=== PATIENT | female | born 1935 | race Caucasian/White ===

== ENCOUNTER 2016-05-02 15:28 | Inpatient (IN) | payer MEDICARE, MEDICAID ==
[~2016-05-02] VITALS: Ht 147.3 cm; Wt 63.0 kg
[2016-05-02 15:50] LABS: BASOPHILS # (AUTO) 0.1 /CMM (0.0-0.2); BASOPHILS % (AUTO) 0.6 % (0.0-2.0); DIFF TOTAL % 100 %; EOSINOPHILS # (AUTO) 0.1 /CMM (0.0-0.7); EOSINOPHILS % (AUTO) 0.6 % (0.0-6.0); HEMATOCRIT 29 % (33-45); HEMOGLOBIN 9.6 g/dL (11.5-14.8); LYMPHOCYTES # (AUTO) 2.6 /CMM (0.8-4.8); LYMPHOCYTES % (AUTO) 20.1 % (20.0-44.0); MEAN CORPUSCULAR HEMOGLOBIN 24 PG (26.0-33.0); MEAN CORPUSCULAR HGB CONC 33 g/dl (31.0-36.0); MEAN CORPUSCULAR VOLUME 73 fL (82-100); MONOCYTES # (AUTO) 0.4 /CMM (0.1-1.30); MONOCYTES % (AUTO) 3.3 % (2.0-12.0); NEUTROPHILS # (AUTO) 9.8 /CMM (1.8-8.9); NEUTROPHILS % (AUTO) 75.4 % (43.0-81.0); PLATELET COUNT (AUTO) 205 /CMM (150-450); RED BLOOD CELL COUNT(AUTO) 3.99 MIL/uL (4.0-5.2)
[2016-05-02 16:01] LABS: CREATININE 0.9 mg/dL (0.6-1.3); POTASSIUM 4.4 mmol/L (3.5-5.1)
[2016-05-02 16:04] LABS: INR 0.96 (0.87-1.13); PROTHROMBIN TIME 10.1 SECS (9.5-12.7)
[2016-05-02 16:12] LABS: ALBUMIN 3.2 g/dL (3.4-5.0); BILIRUBIN,TOTAL 0.2 mg/dL (0.2-1.0); TOTAL PROTEIN, SERUM 8.4 g/dL (6.4-8.2)
[2016-05-02 16:13] LABS: TROPONIN I 0.076 ng/mL (0.00-0.056)
[2016-05-02 16:14] LABS: INDIRECT BILIRUBIN 0.2 mg/dL (0.0-1.1)
[2016-05-02] MEDS ORDERED: ONDANSETRON HCL/PF 4 MG/2 ML VIAL IV ONE (16:30)
[2016-05-02] MEDS ORDERED: IV NS 0.9% 500 ML BAG IV ONE (16:30)
[2016-05-02] MEDS ORDERED: MORPHINE SULFATE INJ 4 MG/ML DISP.SYRIN ONE ×2 (16:30→17:59)
[2016-05-02] MEDS ORDERED: IV SET PRIMARY 1 EA INFUS.SET MC ONE (16:30)
[2016-05-02] MEDS ORDERED: ASPIRIN EC 81 MG TABLET.DR PO ONE ×2 (16:30)
[2016-05-02] MEDS ORDERED: IV NS 0.9% 500 ML IV ONE (16:30)
[2016-05-02] MEDS ORDERED: MORPHINE SULFATE INJ 2 MG/ML DISP.SYRIN IV ONE (16:30)
[2016-05-02] MEDS ORDERED: ONDANSETRON HCL/PF 4 MG/2 ML VIAL ONE ×2 (16:30→17:59)
[2016-05-02] MEDS ORDERED: NITROGLYCERIN 0.4 MG/TAB BOTTLE ONE (16:39)
[2016-05-02] MEDS ORDERED: NITROGLYCERIN 0.4 MG/TAB BOTTLE SL ONE (17:00)
[2016-05-02] MEDS ORDERED: ASPI-991 PO (17:12)
[2016-05-02] MEDS ORDERED: ERGO500047 PO (17:12)
[2016-05-02] MEDS ORDERED: CYAN1TAB3 PO (17:12)
[2016-05-02] MEDS ORDERED: TRAM50TA2 PO (17:12)
[2016-05-02] MEDS ORDERED: ROSU5TAB9 PO (17:12)
[2016-05-02] MEDS ORDERED: FERR-58 PO (17:12)
[2016-05-02] MEDS ORDERED: CALC-7 PO (17:12)
[2016-05-02] MEDS ORDERED: BLOO-697 IN (17:12)
[2016-05-02] MEDS ORDERED: GLYB1TAB9 PO (17:12)
[2016-05-02] MEDS ORDERED: METO25TA3 PO (17:12)
[2016-05-02] MEDS ORDERED: LINA145C PO (17:12)
[2016-05-02] MEDS ORDERED: AMYL1CAP56 PO (17:12)
[2016-05-02] MEDS ORDERED: [UNRECOGNIZED DRUG - CODE] PO (17:12)
[2016-05-02] MEDS ORDERED: ESOM40CA52 PO (17:12)
[2016-05-02] MEDS ORDERED: VALS1TAB48 PO (17:12)
[2016-05-02] MEDS ORDERED: LIDO30AD10 TP (17:19)
[2016-05-02] MEDS ORDERED: MORPHINE SULFATE INJ 2 MG/ML DISP.SYRIN ONE (17:59)
[2016-05-02] MEDS ORDERED: ONDANSETRON HCL/PF 4 MG/2 ML VIAL IV PRN (18:30)
[2016-05-02] MEDS ORDERED: MORPHINE SULFATE INJ 4 MG/ML DISP.SYRIN IV PRN (18:30)
[2016-05-02 18:40] VITALS: BP 141/76
[2016-05-02] MEDS ORDERED: ACETAMINOPHEN 325 MG TABLET PO PRN (19:00)
[2016-05-02] MEDS ORDERED: ONDANSETRON HCL/PF 4 MG/2 ML VIAL IVP PRN (19:00)
[2016-05-02] MEDS ORDERED: *INSULIN REGULAR(HUMULIN R)HUM 100 UNIT/ML VIAL SQ PRN (19:30)
[2016-05-02] MEDS ORDERED: INSULIN REGULAR, HUMAN 100 UNIT/ML 3 ML VIAL SQ PRN (19:30)
[2016-05-02] MEDS ORDERED: DEXTROSE 50%-WATER 50 ML DISP.SYRIN IV PRN (19:30)
[2016-05-02 20:00] VITALS: BP 152/82
[2016-05-02] MEDS ORDERED: ENOXAPARIN SODIUM 40 MG/0.4 ML DISP.SYRIN SQ SCH (20:00)
[2016-05-02] MEDS ORDERED: TEMAZEPAM 15 MG CAPSULE PO PRN (20:00)
[2016-05-02 20:24] LABS: IRON, SERUM 19 ug/dl (50-175); PERCENT SATURATION 4 % (14-33); TOTAL IRON BINDING CAPACITY 472 ug/dl (250-450)
[2016-05-02] MEDS ORDERED: LIDOCAINE 5% (PATCH) 1 EA PATCH TP SCH (21:00)
[2016-05-02] MEDS: VALSARTAN 80 MG TABLET PO SCH (21:08)
[2016-05-02 21:29] LABS: EOSINOPHILS % (MANUAL) 2 % (0-4); LYMPHOCYTES % (MANUAL) 19 % (16-48)
[2016-05-02 21:38] LABS: HYPOCHROMASIA SLT; PLATELET ESTIMATE ADEQUATE
[2016-05-02] MEDS: BLOOD SUGAR DIAGNOSTIC 1 EACH STRIP VI SCH (21:56)
[2016-05-02] MEDS ORDERED: TRIAZOLAM 0.125 MG TABLET PO SCH (22:00)
[2016-05-02] MEDS ORDERED: ATORVASTATIN 10 MG TABLET PO SCH (22:00)
[2016-05-02] MEDS ORDERED: METOPROLOL SUCCINATE 25 MG TAB.SR.24H PO SCH (22:00)
[2016-05-03] VITALS: BP 103/50
[2016-05-03 04:00] VITALS: BP 113/76
[2016-05-03] MEDS: PANTOPRAZOLE 40 MG TABLET.DR PO SCH ×2 (04:43→07:50)
[2016-05-03 06:40] LABS: BASOPHILS % (AUTO) 0.2 % (0.0-2.0); DIFF TOTAL % 100 %; EOSINOPHILS # (AUTO) 0.1 /CMM (0.0-0.7); EOSINOPHILS % (AUTO) 0.6 % (0.0-6.0); HEMATOCRIT 27 % (33-45); HEMOGLOBIN 8.3 g/dL (11.5-14.8); LYMPHOCYTES # (AUTO) 3.5 /CMM (0.8-4.8); LYMPHOCYTES % (AUTO) 27.1 % (20.0-44.0); MEAN CORPUSCULAR HEMOGLOBIN 23 PG (26.0-33.0); MEAN CORPUSCULAR HGB CONC 31 g/dl (31.0-36.0); MEAN CORPUSCULAR VOLUME 74 fL (82-100); MONOCYTES % (AUTO) 7.9 % (2.0-12.0); NEUTROPHILS # (AUTO) 8.3 /CMM (1.8-8.9); NEUTROPHILS % (AUTO) 64.2 % (43.0-81.0); PLATELET COUNT (AUTO) 208 /CMM (150-450); WHITE BLOOD COUNT (AUTO) 12.9 K/uL (4.3-11.0)
[2016-05-03 07:10] LABS: ALBUMIN 2.8 g/dL (3.4-5.0); BILIRUBIN,TOTAL 0.2 mg/dL (0.2-1.0); CALCIUM, SERUM 8.9 mg/dL (8.5-10.1); CREATININE 0.8 mg/dL (0.6-1.3); PHOSPHORUS 4.2 mg/dL (2.5-4.9); POTASSIUM 4.2 mmol/L (3.5-5.1); THYROID STIMULATING HORMONE 4.227 uIU/mL (0.358-3.74); TOTAL PROTEIN, SERUM 7.5 g/dL (6.4-8.2)
[2016-05-03] MEDS: VALSARTAN 80 MG TABLET PO SCH (07:50)
[2016-05-03] MEDS: BLOOD SUGAR DIAGNOSTIC 1 EACH STRIP VI SCH ×3 (07:51→17:45)
[2016-05-03] MEDS: CALCIUM CARB 250MG /VITAMIN D 1 UDTAB PO SCH ×2 (07:51→18:12)
[2016-05-03 08:00] VITALS: BP 125/60
[2016-05-03 08:20] LABS: ANISOCYTOSIS 2+; BAND % (MANUAL) 1 % (0.0-5.0); EOSINOPHILS % (MANUAL) 3 % (0-4); HYPOCHROMASIA 1+; LYMPHOCYTES % (MANUAL) 25 % (16-48); MICROCYTOSIS 2+; PLATELET ESTIMATE ADEQUATE
[2016-05-03] MEDS ORDERED: MORPHINE SULFATE INJ 2 MG/ML DISP.SYRIN IV STA (08:52)
[2016-05-03] MEDS ORDERED: HEPARIN INFUSION/D5W 500 ML IV PRN (09:00)
[2016-05-03] MEDS ORDERED: TRAMADOL HCL 50 MG TABLET PO SCH (09:00)
[2016-05-03] MEDS ORDERED: BLOOD SUGAR DIAGNOSTIC 1 EACH STRIP IN SCH (09:00)
[2016-05-03] MEDS ORDERED: ASPIRIN EC 81 MG TABLET.DR PO SCH (09:00)
[2016-05-03] MEDS ORDERED: FERROUS SULFATE (325 MG) 325 MG/TAB TABLET PO SCH (09:00)
[2016-05-03] MEDS ORDERED: HEPARIN SODIUM, PORCINE 5000 UNITS/1 ML VIAL IV ONE (09:30)
[2016-05-03] MEDS ORDERED: IV SET PRIMARY PUMP SET 1 EA INFUS.SET MC ONE (09:42)
[2016-05-03 12:00] VITALS: BP 123/69
[2016-05-03] MEDS ORDERED: ENOXAPARIN SODIUM 60 MG/0.6 ML DISP.SYRIN SQ SCH (12:30)
[2016-05-03] MEDS: METOPROLOL SUCCINATE 50 MG TAB.SR.24H PO SCH ×2 (13:36→18:12)
[2016-05-03] MEDS ORDERED: SUCRALFATE 1 G/10 ML UDC PO ONE (14:30)
[2016-05-03 16:00] VITALS: BP 123/62
[2016-05-03] MEDS: NITROGLYCERIN 0.4 MG/TAB BOTTLE SL PRN ×3 (17:44→17:59)
[2016-05-03] MEDS ORDERED: MORPHINE SULFATE INJ 2 MG/ML DISP.SYRIN IV ONE (18:00)
[2016-05-03 18:12] VITALS: BP 119/70
[2016-05-04] MEDS ORDERED: ERGOCALCIFEROL (VITAMIN D 2) 50,000 UNIT CAPSULE PO SCH (19:00)
== END 2016-05-03 20:25 | disposition short-term general hospital (02) | DRG 280 ==
LOC: ER 15:29 → TELE1 17:47 → TELE-TD 05-03 09:24 → TELE1 05-03 12:10 → TELE-TD 05-03 17:51
PROVIDERS: ADMIT Nurse Practitioner Acute Care; ATTEND Nurse Practitioner Acute Care
DX: I21.4 Non-ST elevation (NSTEMI) myocardial infarction (principal); R65.11 Systemic inflammatory response syndrome (SIRS) of non-infectious origin with acute organ dysfunction; I25.10 Atherosclerotic heart disease of native coronary artery without angina pectoris; D50.9 Iron deficiency anemia, unspecified; Z95.1 Presence of aortocoronary bypass graft; I10 Essential (primary) hypertension; E11.9 Type 2 diabetes mellitus without complications; E66.01 Morbid (severe) obesity due to excess calories; K44.9 Diaphragmatic hernia without obstruction or gangrene; G83.10 Monoplegia of lower limb affecting unspecified side; Z99.3 Dependence on wheelchair; G14 Postpolio syndrome; I35.0 Nonrheumatic aortic (valve) stenosis; Z79.4 Long term (current) use of insulin
CPT/HCPCS: 36415; 71010-TC; 80048-TC; 80053-TC; 80061-TC; 80076-TC; 82306; 82728-TC; 82962-TC; 83540-TC; 83690-TC; 83735-TC; 83880; 84100-TC; 84439-TC; 84443-TC; 84484-TC; 85025-TC; 85730-TC; 93307-TC; A4606; J1644; J1650; J1815; J2270; J2405; J7040; Z7610

== ENCOUNTER 2017-04-03 00:48 | Inpatient (IN) | payer MEDICARE, MEDICAID ==
[2017-04-03] VITALS (41 sets, daily range): BP systolic 81–146; BP diastolic 24–70
[~2017-04-03] VITALS: Ht 144.8 cm; Wt 57.2 kg
[~2017-04-03 00:48] MED LIST: AMYL1CAP56 PO; ASPI-1152 PO; BLOO-697 IN; CALC-7 PO; CYAN1TAB3 PO; ERGO500040 PO; ESOM40CA52 PO; FERR-58 PO; GLYB1TAB PO; LIDO30AD10 TP; LINA145C PO; METO25TA3 PO; ROSU5TAB9 PO; TRAM50TA2 PO; VALS1TAB4 PO; [UNRECOGNIZED DRUG - CODE] PO
--- NOTE | 2017-04-03 00:51 | NUR ---
TO BED 2 BIB PARAMEDICS C/O SOB WITH WHEEZING PER EMS REPORT. RECEIVE PT NONVERBAL, AAOX1. PT ON HHN TX STARTED BY EMS QUALITY ASSURANCE MONITOR. PLACE PT ON CARDIAC MONITORING, CONTINUOUS POX. SKIN WARM NONDIAPORETIC. ER MD AT BEDSIDE TO EVAL PT WIHT ORDERS RECIEVED. WILL CARRY OUT ORDERS. STARTED SL 18G TO LAC, BLOOD DRAWN AND SENT TO LAB.
[2017-04-03] MEDS ORDERED: Magnesium 1GM/D5W 100ML PREMIX 200 ML IV ONE ×2 (01:00→01:02)
[2017-04-03] MEDS ORDERED: methylPREDNISolone SOD SUCC 125 MG/2ML VIAL ONE (01:00)
--- NOTE | 2017-04-03 01:05 | NUR ---
RT PLACE PT ON BIPAP PER ER MD ORDER. BIPAP SETTING 15/5, RATE-16, FIO2-50%. WILL CONTINUE TO MONITOR PT CLOSELY.
--- NOTE | 2017-04-03 01:14 | NUR ---
PT REC'D ON NEBULIZER MASK 6L. RESP DISTRESS NOTED. PT PLACED ON BIPAP PER DR FONSECA. AMBU BAG BEDSIDE. ALARMS ARE SET AND AUDIBLE. BIPAP PLUGGED INTO RED OUTLET. WILL CONTINUE TO MONITOR Addendum: 04/03/17 at 0115 by DONNIE RAY RT Amended: Links added.
[2017-04-03] MEDS ORDERED: ALBUTEROL FS 2.5 MG/3 ML VIAL.NEB ONE (01:18)
[2017-04-03] MEDS ORDERED: TERBUTALINE SULFATE 1 MG/ML VIAL SQ ONE (01:30)
[2017-04-03] MEDS ORDERED: ALBUTEROL FS 2.5 MG/3 ML VIAL.NEB CONTNEB ONE (01:30)
[2017-04-03] MEDS ORDERED: methylPREDNISolone SOD SUCC 125 MG/2ML VIAL IV ONE (01:30)
[2017-04-03] MEDS ORDERED: TERBUTALINE SULFATE 1 MG/ML VIAL ONE (01:38)
[2017-04-03 01:46] LABS: CALCIUM, SERUM 8.7 mg/dL (8.5-10.1); CARBON DIOXIDE 22 mmol/L (21-32); CHLORIDE 111 mmol/L (98-107); CREATININE 0.9 mg/dL (0.6-1.3); GLUCOSE 158 mg/dL (74-106); POTASSIUM 3.9 mmol/L (3.5-5.1); SODIUM SERUM 143 mmol/L (136-145); UREA NITROGEN, BLOOD 22 mg/dL (7-18)
[2017-04-03 01:50] LABS: EOSINOPHILS # (AUTO) 0.2 /CMM (0.0-0.7); EOSINOPHILS % (AUTO) 0.7 % (0.0-6.0); HEMATOCRIT 23 % (33-45); HEMOGLOBIN 7.2 g/dL (11.5-14.8); LYMPHOCYTES % (AUTO) 37.2 % (20.0-44.0); MEAN CORPUSCULAR HEMOGLOBIN 22 PG (26.0-33.0); MEAN CORPUSCULAR HGB CONC 31 g/dl (31.0-36.0); MEAN CORPUSCULAR VOLUME 72 fL (82-100); MONOCYTES # (AUTO) 1.3 /CMM (0.1-1.30); MONOCYTES % (AUTO) 6.2 % (2.0-12.0); NEUTROPHILS % (AUTO) 55.9 % (43.0-81.0); PLATELET COUNT (AUTO) 323 /CMM (150-450); RDW COEFFICIENT OF VARIATION 17.5 (11.5-15.0); RED BLOOD CELL COUNT(AUTO) 3.22 MIL/uL (4.0-5.2); TROPONIN I 0.037 ng/mL (0.00-0.056); WHITE BLOOD COUNT (AUTO) 21.4 K/uL (4.3-11.0)
[2017-04-03 01:55] LABS: ALANINE AMINOTRANSFERASE 27 U/L (12-78); ALKALINE PHOSPHATASE 108 U/L (46-116); ASPARTATE AMINOTRANSFERASE 23 U/L (15-37); B-TYPE NATRIURETIC PEPTIDE 4968 PG/ML (0-125); BILIRUBIN,TOTAL 0.2 mg/dL (0.2-1.0)
--- NOTE | 2017-04-03 01:57 | NUR ---
ER AT BEDSIDE TALKING TO PT SON.
[2017-04-03] MEDS ORDERED: TERBUTALINE SULFATE 1 MG/ML VIAL IV ONE (02:00)
--- NOTE | 2017-04-03 02:05 | NUR ---
ER AT BEDSIDE TALKING TO PT SON.
[2017-04-03] MEDS ORDERED: LEVOFLOXACIN 500 MG /D5W 100ML 100 ML IV ONE (02:13)
[2017-04-03] MEDS ORDERED: FUROSEMIDE 20 MG/2 ML VIAL ONE (02:13)
[2017-04-03] MEDS ORDERED: NITROGLYCERIN PACKET 1 GM PACKET ONE (02:13)
[2017-04-03 02:16] LABS: EOSINOPHILS % (MANUAL) 1 % (0-4); LYMPHOCYTES % (MANUAL) 33 % (16-48); MONOCYTES % (MANUAL) 5 % (0-11.0); NEUTROPHILS % (MANUAL) 61 (42-76)
--- NOTE | 2017-04-03 02:19 | NUR ---
PT TOLREATING CURRENT BIPAP SETTING AT THIS TIME. WILL CONTINUE TO MONITOR PT CLOSELY.
[2017-04-03] MEDS ORDERED: LEVOFLOXACIN 500 MG /D5W 100ML 500 MG/100 ML PIGGYBACK IV ONE (02:30)
[2017-04-03] MEDS ORDERED: FUROSEMIDE 40 MG/4 ML VIAL IV ONE (02:30)
[2017-04-03] MEDS ORDERED: NITROGLYCERIN PACKET 1 GM PACKET TOP ONE (02:30)
[2017-04-03 02:41] LABS: ABG BASE EXCESS -8.5 mmol/L; ABG OXYGEN SATURATION 98.5 % (92.0-98.5); ABG PH 7.305 (7.350-7.450); ABG PO2 140.7 mmHg (75.0-100.0); AaDO2 176.4 mmHg; COHb 1.4 % (0.5-1.5); MetHb 0.7 % (0.0-1.5); O2Hb 96.4 % (94.0-97.0); SITE, ABG Right Radial; VENT MODE, BG bipap 15/5 50% BR 16
--- NOTE | 2017-04-03 03:03 | NUR ---
ER SPOKE TO LUZ HER[facility]NDEZ [facility] PT ADMISSION.
[2017-04-03] MEDS ORDERED: DEXTROSE 50%-WATER 50 ML DISP.SYRIN IV PRN ×2 (03:30→14:00)
--- NOTE | 2017-04-03 04:00 | NUR ---
REPORT CALLED TO CREWMAN MAIN BATTLE TANK LAISHA. WILL TRANSPORT PT VIA ACLS PROTOCOL.
[2017-04-03 04:45] LABS: APPEARANCE,URINE CLEAR (CLEAR); BILIRUBIN,URINE NEGATIVE (NEGATIVE); BLOOD, URINE NEGATIVE Ery/uL (NEGATIVE); COLOR,URINE YELLOW (YELLOW); KETONES,URINE NEGATIVE (NEGATIVE); LEUKOCYTE ESTERASE ,URINE 1+ (NEGATIVE); NITRITE, URINE NEGATIVE (NEGATIVE); PH,URINE 5.5 (5.0-8.0); PROTEIN,URINE 3+ mg/dl (NEGATIVE); UGLUCOSE NEGATIVE (NEGATIVE); UROBILINOGEN,URINE 0.2 EU/dL (0.2)
[2017-04-03 04:57] LABS: RBC,URINE NONE SEEN /HPF (0-2)
[2017-04-03 04:58] LABS: BACTERIA,URINE None seen /HPF (None Seen); SQUAMOUS EPITHELIAL CELL,UR Rare /HPF (None Seen); URINE AMORPHOUS URATE Few /HPF (None Seen)
[2017-04-03 05:14] LABS: IRON, SERUM 19 ug/dl (50-175); TOTAL IRON BINDING CAPACITY 471 ug/dl (250-450)
[2017-04-03 06:22] LABS: BASOPHILS % (AUTO) 0.3 % (0.0-2.0); EOSINOPHILS % (AUTO) 0.1 % (0.0-6.0); LYMPHOCYTES # (AUTO) 0.8 /CMM (0.8-4.8); LYMPHOCYTES % (AUTO) 6.1 % (20.0-44.0); MEAN CORPUSCULAR HEMOGLOBIN 23 PG (26.0-33.0); MEAN CORPUSCULAR HGB CONC 33 g/dl (31.0-36.0); MEAN CORPUSCULAR VOLUME 69 fL (82-100); MONOCYTES # (AUTO) 0.1 /CMM (0.1-1.30); MONOCYTES % (AUTO) 0.9 % (2.0-12.0); NEUTROPHILS # (AUTO) 12.8 /CMM (1.8-8.9); NEUTROPHILS % (AUTO) 92.6 % (43.0-81.0); PLATELET COUNT (AUTO) 229 /CMM (150-450); RED BLOOD CELL COUNT(AUTO) 2.85 MIL/uL (4.0-5.2); WHITE BLOOD COUNT (AUTO) 13.7 K/uL (4.3-11.0)
[2017-04-03 06:24] LABS: HEMATOCRIT 20 % (33-45); HEMOGLOBIN 6.5 g/dL (11.5-14.8)
[2017-04-03 06:25] LABS: CALCIUM, SERUM 8.9 mg/dL (8.5-10.1); CARBON DIOXIDE 17 mmol/L (21-32); CHLORIDE 106 mmol/L (98-107); GLUCOSE 262 mg/dL (74-106); MAGNESIUM 2.5 mg/dL (1.8-2.4); PHOSPHORUS 3.8 mg/dL (2.5-4.9); POTASSIUM 4.1 mmol/L (3.5-5.1); SODIUM SERUM 137 mmol/L (136-145); UREA NITROGEN, BLOOD 24 mg/dL (7-18)
--- NOTE | 2017-04-03 06:31 | NUR ---
UMBRELLA CUTTER DF CRITICAL VALUE HGB/HCT OF 6.5/20 NO S/S OF BLEEDING NOTED. FORWARDED RESULTS TO ABDIAS HERNANDEZ, AWAITING ORDERS. VSS.NAD NOTED. A/OX3 OCCITAN SPEAKING.
[2017-04-03] MEDS: BLOOD SUGAR DIAGNOSTIC 1 EACH STRIP IN SCH ×4 (06:41→22:16)
[2017-04-03] MEDS: INSULIN REGULAR, HUMAN 100 UNIT/ML 3 ML VIAL SQ PRN ×3 (06:44→17:38)
--- NOTE | 2017-04-03 06:47 | NUR ---
ASSOCIATE PROFESSOR OF PSYCHOLOGY DF ACCU CHECK OF 286 COVERED WITH 6 UNITS REGULAR INSULIN.
--- NOTE | 2017-04-03 07:54 | NUR ---
REFRIGERATOR CRATER: pt.is awake/Ox2, Persian speaker, rest, no pain, SR, SBP 90-100, removed Nitro patch, O2 sat. WNL on Bipap, H/H 6.5/, message for ABDIAS Morrell was sent by night nurse report, no acute bleeding by report
[2017-04-03] MEDS: CALCIUM CARB 250MG /VITAMIN D 1 UDTAB PO SCH ×2 (08:44→17:24)
[2017-04-03] MEDS: FERROUS SULFATE (325 MG) 325 MG/TAB TABLET PO SCH (08:44)
[2017-04-03] MEDS: ASPIRIN EC 81 MG TABLET.DR PO SCH (08:45)
--- NOTE | 2017-04-03 08:50 | NUR ---
HAY FARMER: pt.is on 5L O2 n/c, O2 sat. over 94%, SR, SBP over 100, rest, no pain, no c/o, took 75% breakfast, updated with all above, H/H 6.08/23, ordered: transfuse one unit of PRBC, Lasix 20 mg x1 IVP after BT, stool for OB
[2017-04-03] MEDS ORDERED: [UNRECOGNIZED DRUG - OTHER] PO SCH (09:00)
[2017-04-03] MEDS ORDERED: GLYBURIDE PO SCH (09:00)
[2017-04-03] MEDS ORDERED: METFORMIN PO SCH (09:00)
[2017-04-03] MEDS ORDERED: FUROSEMIDE 20 MG/2 ML VIAL IV PRN (09:30)
--- NOTE | 2017-04-03 09:35 | NUR ---
TERMINAL WORKER: pt.is A/Ox2
--- NOTE | 2017-04-03 09:36 | NUR ---
VETERINARY HOSPITAL ATTENDANT: pt.is A/Ox3 with English translation by ZENOBIA Kuhn, agree for blood transfusion, did sing consent, no pain, no c/o now, ABDIAS Collazo is in unit/notified re pt.history/acute condition, VS, I/O, H/H, agree for one unit PRBS transfusion
[2017-04-03] MEDS ORDERED: IV NS 0.9% 250 ML IV ONE (09:55)
[2017-04-03] MEDS ORDERED: glyBURIDE 2.5 MG TABLET PO SCH (10:30)
[2017-04-03] MEDS: METFORMIN 500 MG TABLET PO SCH (10:57)
--- NOTE | 2017-04-03 12:00 | NUR ---
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 c/o chest pain 5-09/13 now, SR now, BP WNL, O2 sat. over 94%, no SOB, will page CUPOLA MELTER, Zay
--- NOTE | 2017-04-03 12:10 | NUR ---
ADMINISTRATIVE PROFESSIONAL: SLUBBER HANDZay called, updated, ordered: Nitro 0.4 mg SL one time and call to notify re pt.reaction, EKG, troponin now and in 8 hrs
[2017-04-03] MEDS ORDERED: NITROGLYCERIN 0.4 MG/TAB BOTTLE SL ONE (12:30)
--- NOTE | 2017-04-03 12:30 | NUR ---
BALLPOINT PEN CARTRIDGE TESTER: pt.got Nitro 0.4 mg s/l one dose10 min ago, no acute pain now by Estonian translation, feels better, tolerated well for blood transfusion, will updated ABDIAS Collazo
--- NOTE | 2017-04-03 12:30 | NUR ---
CORPORATE CLAIMS EXAMINER: pt.got 0.4 mg Nitro s/d 10 mmin
--- NOTE | 2017-04-03 12:40 | NUR ---
OBGYN HOSPITALIST PHYSICIAN: BS [id number], Insulin 8 units were given, MINIATURE MODEL MAKER Collazo notified: pt.is on NPO Insulin SS, getting diet/food well
--- NOTE | 2017-04-03 12:45 | NUR ---
INVENTORY TRANSCRIBER: [id number] charting, CYTOLOGY TEACHER Neglete called back, will see pt., ordered: Nitro .4mg s/l q5min time x3 total prn, change Insulin SS to mild
[2017-04-03] MEDS ORDERED: NITROGLYCERIN 0.4 MG/TAB BOTTLE SL PRN (13:40)
--- NOTE | 2017-04-03 13:46 | NUR ---
WASTEWATER PROJECT MANAGER: is in room, notified re pt.history, VS, c/o, I/O, see new orders
[2017-04-03] MEDS: LIPASE/PROTEASE/AMYLASE 1 EACH CAPSULE.DR PO SCH ×2 (13:50→17:24)
--- NOTE | 2017-04-03 14:04 | NUR ---
EQUIPMENT WORKER: CABLE SPLICER ASSISTANTZay called, updated, ordered: Nitro 0.4 mg SL one time and call to notify re pt.reaction, EKG, troponin now and in 8 hrs
--- NOTE | 2017-04-03 14:05 | NUR ---
DRIVER MERCHANDISER: prev.note for time 12.10
--- NOTE | 2017-04-03 14:15 | NUR ---
VALUE STREAM LEADER: one PRBC is given, pt.is tolerated well, no any pain now
[2017-04-03] MEDS ORDERED: ALBUTEROL HALF STRENGTH 1.25 MG/3 ML VIAL.NEB NEB PRN (14:30)
[2017-04-03] MEDS ORDERED: IPRATROPIUM NEB FS 0.5 MG/2.5 ML AMPUL.NEB NEB PRN (14:30)
[2017-04-03] MEDS: PANTOPRAZOLE 40 MG VIAL IV SCH (14:34)
[2017-04-03] MEDS: FUROSEMIDE 40 MG/4 ML VIAL IV SCH ×3 (15:34→22:14)
--- NOTE | 2017-04-03 16:00 | NUR ---
SUPPLY CHAIN SPECIALIST: TIRE STRIPPER, Facundo Collazo was notified re order for GI MD consult
--- NOTE | 2017-04-03 16:30 | NUR ---
UNDERWRITING CONSULTANT: HUMAN RESOURCES SERVICES SPECIALIST, Facundo Collazo called back: is going to consult patient
--- NOTE | 2017-04-03 18:13 | NUR ---
HADOOP ARCHITECT: pt.is awake/ox2, rest, no c/o, no pain, forgetful, SR/ST max 110, BP WNL, O2 sat. over 94%, continue titrate O2, now 3L n/c, no acute bleeding events, no chest pain, BS 151, good appetite
--- NOTE | 2017-04-03 19:15 | NUR ---
HADOOP ANALYST NOTE RECEIVED PATIENT IN BED, AWAKE AND ALERT, PATIENT DENIES ANY PAIN AND DISCOMFORT AT THIS TIME. NO DISTRESS. PATIENT IS SR-ST WITH HR OF 102. AFEBRILE. ON NC AT 4LPM OF O2, NO RESPIRATORY DISTRESS. F/C INTACT AND DRAINING WELL WITH PALE, YELLOW URINE, DIURESING WELL. L AC G18 AND R HAND G18, FLUSHED AND PATENT, NO SIGNS OF INFILTRATION. PATIENT'S NEEDS ANTICIPATED AND MET. SAFETY AND COMFORT ENSURED. BED IN LOW AN LOCKED POSITION. PATIENT REORIENTED NEEDED. WILL CONTINUE TO MONITOR.
[2017-04-03 20:20] LABS: HEMOGLOBIN 7.8 g/dL (11.5-14.8)
--- NOTE | 2017-04-03 20:30 | NUR ---
HAT BLOCKING OPERATOR NOTE H/H VALUED AT 7.8/24, NO TRANSFUSION REQUIRED PER ORDER. CN AWARE. NO ACTIVE BLEEDING.
--- NOTE | 2017-04-03 21:00 | NUR ---
BLOCK SORTER NOTE TROPONIN NOTED TO BE 0.708. NO RECENT COMPLAIN OF ANY DISCOMFORT AND CHEST PAIN. LUZ HERNANDEZ AWARE, NNO.
--- NOTE | 2017-04-03 22:45 | NUR ---
LIP READING TEACHER NOTE ALL DUE MEDS GIVEN ORDERED. 3RD DOSE OF LASIX 40MG IVP GIVEN ORDERED, VS STABLE. PATIENT DIURESING WELL WITH PALE, YELLOW URINE. NO ACUTE DISTRESS. REMAINS SR AT 94. PATIENT TO BE TRANSFERRED TO [facility], RM 102, WILL ENDORSE PATIENT'S CARE ACCORDINGLY FOR CONTINUITY OF CARE. PATIENT WITH NO DISTRESS. NEEDS ANTICIPATED AND MET.
--- NOTE | 2017-04-03 22:50 | NUR ---
TELE-TD/TURRET LATHE MACHINIST RECEIVED PT ACCOMPANIED BY ICU STAFF TO ROOM 102. BEDSIDE REPORT RECEIVED FROM AUSTIN FREGOSO. WILL CONTINUE TO MONITOR.
[2017-04-04] VITALS: BP 139/68
[2017-04-04] MEDS: LEVOFLOXACIN 500 MG /D5W 100ML 500 MG in PREMIX 1 EA IV SCH (01:19)
[2017-04-04 02:25] LABS: HEMOGLOBIN 7.6 g/dL (11.5-14.8)
[2017-04-04 04:00] VITALS: BP 100/44
--- NOTE | 2017-04-04 07:30 | NUR ---
[facility] RN INITIAL NOTES RECEIVED PATIENT AWAKE IN BED, AOX2, INDONESIAN SPEAKING, NO SIGNS OF DISTRESS, ON 3L NC SATURATING 97% O2, ON TELE MONITORING SR 87 HR, FC TO GRAVITY DRAINING CLEAR YELLOW URINE, IV L HAND 22G CLEAN AND PATENT, ON BED REST, STANDING ORDER FOR BLOOD TRANSFUSION FOR Q6H H/H NOTED, BED IN LOW AND LOCKED POSITION, CALL LIGHT WITHIN REACH, WILL CONTINUE TO MONITOR.
[2017-04-04 08:00] VITALS: BP_SYST 138; BP_DIAS 45; BP_DIAS 46
[2017-04-04] MEDS: BLOOD SUGAR DIAGNOSTIC 1 EACH STRIP IN SCH ×4 (08:04→21:07)
[2017-04-04] MEDS: ASPIRIN EC 81 MG TABLET.DR PO SCH (08:31)
[2017-04-04] MEDS: ATORVASTATIN 10 MG TABLET PO SCH (08:31)
[2017-04-04] MEDS: CALCIUM CARB 250MG /VITAMIN D 1 UDTAB PO SCH ×2 (08:31→17:42)
[2017-04-04] MEDS: FERROUS SULFATE (325 MG) 325 MG/TAB TABLET PO SCH (08:31)
[2017-04-04] MEDS: LIPASE/PROTEASE/AMYLASE 1 EACH CAPSULE.DR PO SCH ×3 (08:31→18:44)
[2017-04-04] MEDS: METFORMIN 500 MG TABLET PO SCH (08:31)
[2017-04-04] MEDS: glyBURIDE 5 MG TABLET PO SCH (08:32)
[2017-04-04] MEDS: Linaclotide (Linzess) 145 MCG PO SCH (09:00)
[2017-04-04] MEDS ORDERED: PYRIDOXINE PO SCH ×2 (09:00)
[2017-04-04] MEDS ORDERED: [UNRECOGNIZED DRUG - OTHER] PO SCH ×2 (09:00)
[2017-04-04] MEDS ORDERED: CYANOCOBALAMIN PO SCH ×2 (09:00)
[2017-04-04 09:06] LABS: BASOPHILS % (AUTO) 0.2 % (0.0-2.0); EOSINOPHILS # (AUTO) 0.1 /CMM (0.0-0.7); EOSINOPHILS % (AUTO) 0.6 % (0.0-6.0); HEMATOCRIT 23 % (33-45); HEMOGLOBIN 7.7 g/dL (11.5-14.8); LYMPHOCYTES # (AUTO) 2.1 /CMM (0.8-4.8); LYMPHOCYTES % (AUTO) 17.3 % (20.0-44.0); MEAN CORPUSCULAR HEMOGLOBIN 24 PG (26.0-33.0); MEAN CORPUSCULAR HGB CONC 33 g/dl (31.0-36.0); MEAN CORPUSCULAR VOLUME 73 fL (82-100); MONOCYTES # (AUTO) 0.8 /CMM (0.1-1.30); NEUTROPHILS # (AUTO) 8.9 /CMM (1.8-8.9); NEUTROPHILS % (AUTO) 74.9 % (43.0-81.0); PLATELET COUNT (AUTO) 235 /CMM (150-450); RDW COEFFICIENT OF VARIATION 18.1 (11.5-15.0); RED BLOOD CELL COUNT(AUTO) 3.21 MIL/uL (4.0-5.2); WHITE BLOOD COUNT (AUTO) 11.9 K/uL (4.3-11.0)
[2017-04-04 09:43] LABS: CARBON DIOXIDE 24 mmol/L (21-32); CHLORIDE 105 mmol/L (98-107); CREATININE 1.3 mg/dL (0.6-1.3); GLUCOSE 93 mg/dL (74-106); MAGNESIUM 1.9 mg/dL (1.8-2.4); PHOSPHORUS 4.9 mg/dL (2.5-4.9); POTASSIUM 4.2 mmol/L (3.5-5.1); SODIUM SERUM 139 mmol/L (136-145); UREA NITROGEN, BLOOD 38 mg/dL (7-18)
[2017-04-04] MEDS: FUROSEMIDE 40 MG/4 ML VIAL IV SCH ×3 (10:06→17:30)
--- NOTE | 2017-04-04 11:04 | NUR ---
LEGAL REFEREE NOTES PATIENTS HOME MED [facility] IS NOT AVAILABLE/ RAN OUT WILL ASK FAMILY TO PROVIDE.
[2017-04-04 11:11] LABS: LYMPHOCYTES % (MANUAL) 6 % (16-48); MONOCYTES % (MANUAL) 3 % (0-11.0); NEUTROPHILS % (MANUAL) 91 (42-76)
[2017-04-04 12:00] VITALS: BP 103/42
[2017-04-04] MEDS: PANTOPRAZOLE 40 MG VIAL IV SCH (13:15)
[2017-04-04 14:07] LABS: HEMOGLOBIN 8.5 g/dL (11.5-14.8)
[2017-04-04] MEDS: SOD FERRIC GLUC 125 MG in IV NS 0.9% 100 ML IV SCH (14:37)
[2017-04-04 16:00] VITALS: BP 92/45
--- NOTE | 2017-04-04 19:00 | NUR ---
MISSILE MECHANIC END NOTES PATIENT RESTING IN BED, NO SIGNS OF DISTRESS, ALL NEEDS ATTENDED TO, WILL ENDORSE TO SCREEN PRINTING PASTER FOR CONTINUITY OF CARE.
--- NOTE | 2017-04-04 19:30 | NUR ---
TELE/RN NOTES: RECEIVED PT. IN BED ALERT AND AWAKE ALERT X 1-2. AUSTRIAN SPEAKING PT. NO S/S OF RESPIRATORY DISTRESS NOTED. O2 @ 3LPM VIA N/C SAT 97 %. ON TELE MONITOR ST 90s. SL ON LH PATENT AND INTACT W/ NO S/S OF INFECTION/INFILTRATION NOTED. NOT IN ANY DISTRESS. CALL LIGHT W/ REACH. ALL NEEDS MEET AND ATTENDED.
[2017-04-04 19:50] LABS: HEMOGLOBIN 8.4 g/dL (11.5-14.8)
[2017-04-04 20:00] VITALS: BP 119/61
[2017-04-05] VITALS: BP 124/48
[2017-04-05] MEDS: LEVOFLOXACIN 500 MG /D5W 100ML 500 MG in PREMIX 1 EA IV SCH (00:16)
[2017-04-05 02:29] LABS: HEMOGLOBIN 7.7 g/dL (11.5-14.8)
[2017-04-05 04:00] VITALS: BP 99/49
[2017-04-05] MEDS: BLOOD SUGAR DIAGNOSTIC 1 EACH STRIP IN SCH ×4 (07:59→21:09)
[2017-04-05 08:00] VITALS: BP 119/50
--- NOTE | 2017-04-05 08:00 | NUR ---
TELE/RN NOTES: RECEIVED PT. IN BED ALERT AND AWAKE ALERT X 1-2. BARBADIAN SPEAKING PT. NO S/S OF RESPIRATORY DISTRESS NOTED. O2 @ 3LPM VIA N/C SAT 97 %. ON TELE MONITOR SR w/ BBB AND PAC. SL ON LH PATENT AND INTACT W/ NO S/S OF INFECTION/INFILTRATION NOTED. NOT IN ANY DISTRESS. CALL LIGHT W/ REACH. ALL NEEDS MEET AND ATTENDED.
[2017-04-05] MEDS: LIPASE/PROTEASE/AMYLASE 1 EACH CAPSULE.DR PO SCH ×3 (08:02→17:22)
[2017-04-05] MEDS: glyBURIDE 5 MG TABLET PO SCH (08:02)
[2017-04-05] MEDS: ASPIRIN EC 81 MG TABLET.DR PO SCH (08:02)
[2017-04-05] MEDS: ATORVASTATIN 10 MG TABLET PO SCH (08:02)
[2017-04-05] MEDS: CALCIUM CARB 250MG /VITAMIN D 1 UDTAB PO SCH ×2 (08:02→16:55)
[2017-04-05] MEDS: METFORMIN 500 MG TABLET PO SCH (08:03)
[2017-04-05] MEDS: DOCUSATE SODIUM 100 MG CAPSULE PO SCH ×2 (08:17→16:55)
[2017-04-05] MEDS: Linaclotide (Linzess) 145 MCG PO SCH (08:18)
[2017-04-05 08:23] LABS: BASOPHILS % (AUTO) 0.4 % (0.0-2.0); EOSINOPHILS # (AUTO) 0.1 /CMM (0.0-0.7); EOSINOPHILS % (AUTO) 1.1 % (0.0-6.0); HEMATOCRIT 26 % (33-45); HEMOGLOBIN 8.3 g/dL (11.5-14.8); LYMPHOCYTES # (AUTO) 2.3 /CMM (0.8-4.8); MEAN CORPUSCULAR HEMOGLOBIN 24 PG (26.0-33.0); MEAN CORPUSCULAR HGB CONC 33 g/dl (31.0-36.0); MEAN CORPUSCULAR VOLUME 72 fL (82-100); MONOCYTES # (AUTO) 0.8 /CMM (0.1-1.30); MONOCYTES % (AUTO) 8.2 % (2.0-12.0); NEUTROPHILS # (AUTO) 6.4 /CMM (1.8-8.9); NEUTROPHILS % (AUTO) 66.3 % (43.0-81.0); PLATELET COUNT (AUTO) 252 /CMM (150-450); RDW COEFFICIENT OF VARIATION 18.9 (11.5-15.0); RED BLOOD CELL COUNT(AUTO) 3.53 MIL/uL (4.0-5.2); WHITE BLOOD COUNT (AUTO) 9.6 K/uL (4.3-11.0)
[2017-04-05] MEDS ORDERED: ERGOCALCIFEROL (VITAMIN D 2) 50,000 UNIT CAPSULE PO SCH (09:00)
[2017-04-05 09:05] LABS: TROPONIN I 0.357 ng/mL (0.00-0.056)
[2017-04-05 09:06] LABS: ALANINE AMINOTRANSFERASE 26 U/L (12-78); ALBUMIN 2.8 g/dL (3.4-5.0); ALKALINE PHOSPHATASE 77 U/L (46-116); ASPARTATE AMINOTRANSFERASE 29 U/L (15-37); BILIRUBIN,TOTAL 0.3 mg/dL (0.2-1.0); CARBON DIOXIDE 25 mmol/L (21-32); CHLORIDE 107 mmol/L (98-107); CREATININE 1.2 mg/dL (0.6-1.3); GLUCOSE 140 mg/dL (74-106); MAGNESIUM 1.9 mg/dL (1.8-2.4); PHOSPHORUS 4.5 mg/dL (2.5-4.9); SODIUM SERUM 143 mmol/L (136-145); TOTAL PROTEIN, SERUM 7.3 g/dL (6.4-8.2); UREA NITROGEN, BLOOD 51 mg/dL (7-18)
[2017-04-05 12:00] VITALS: BP 116/45
[2017-04-05 12:18] LABS: EOSINOPHILS % (MANUAL) 1 % (0-4); LYMPHOCYTES % (MANUAL) 12 % (16-48); MONOCYTES % (MANUAL) 9 % (0-11.0); NEUTROPHILS % (MANUAL) 78 (42-76)
[2017-04-05] MEDS: INSULIN REGULAR, HUMAN 100 UNIT/ML 3 ML VIAL SQ PRN ×2 (13:02→21:13)
[2017-04-05] MEDS: PANTOPRAZOLE 40 MG VIAL IV SCH (13:16)
[2017-04-05] MEDS: SOD FERRIC GLUC 125 MG in IV NS 0.9% 100 ML IV SCH (13:17)
[2017-04-05] MEDS ORDERED: MAGNESIUM HYDROXIDE 30 ML UDC PO PRN (13:30)
[2017-04-05 14:53] LABS: HEMOGLOBIN 8.5 g/dL (11.5-14.8)
[2017-04-05 16:00] VITALS: BP 120/55
[2017-04-05] MEDS ORDERED: FUROSEMIDE 20 MG/2 ML VIAL IV ONE (17:00)
--- NOTE | 2017-04-05 19:19 | NUR ---
TELE/RN NOTES: PT. IN BED ALERT AND ORIENTED X 2. NOT IN ANY ACUTE DISTRESS. REPORT GIVEN TO NEXT SHIFT NURSE FOR MELISSA.
[2017-04-05 19:55] LABS: HEMOGLOBIN 8.8 g/dL (11.5-14.8)
[2017-04-05 20:00] VITALS: BP 126/60
[2017-04-06] VITALS: BP 111/50
[2017-04-06] MEDS: LEVOFLOXACIN 500 MG /D5W 100ML 500 MG in PREMIX 1 EA IV SCH (01:37)
[2017-04-06 04:00] VITALS: BP 109/52
[2017-04-06 06:15] LABS: BASOPHILS % (AUTO) 0.3 % (0.0-2.0); EOSINOPHILS # (AUTO) 0.1 /CMM (0.0-0.7); EOSINOPHILS % (AUTO) 1.4 % (0.0-6.0); HEMATOCRIT 27 % (33-45); HEMOGLOBIN 8.6 g/dL (11.5-14.8); LYMPHOCYTES # (AUTO) 2.4 /CMM (0.8-4.8); LYMPHOCYTES % (AUTO) 23.1 % (20.0-44.0); MEAN CORPUSCULAR HEMOGLOBIN 23 PG (26.0-33.0); MEAN CORPUSCULAR HGB CONC 33 g/dl (31.0-36.0); MEAN CORPUSCULAR VOLUME 72 fL (82-100); MONOCYTES # (AUTO) 1.1 /CMM (0.1-1.30); MONOCYTES % (AUTO) 10.3 % (2.0-12.0); NEUTROPHILS # (AUTO) 6.6 /CMM (1.8-8.9); NEUTROPHILS % (AUTO) 64.9 % (43.0-81.0); PLATELET COUNT (AUTO) 266 /CMM (150-450); RDW COEFFICIENT OF VARIATION 18.8 (11.5-15.0); RED BLOOD CELL COUNT(AUTO) 3.69 MIL/uL (4.0-5.2); WHITE BLOOD COUNT (AUTO) 10.2 K/uL (4.3-11.0)
[2017-04-06 06:48] LABS: CALCIUM, SERUM 9.4 mg/dL (8.5-10.1); CARBON DIOXIDE 28 mmol/L (21-32); CHLORIDE 105 mmol/L (98-107); CREATININE 1.1 mg/dL (0.6-1.3); GLUCOSE 149 mg/dL (74-106); POTASSIUM 4.2 mmol/L (3.5-5.1); SODIUM SERUM 140 mmol/L (136-145); UREA NITROGEN, BLOOD 40 mg/dL (7-18)
--- NOTE | 2017-04-06 07:22 | NUR ---
BIT TAPPER NOTES PT RECEIVED ON BED A/O X 2. ON ROOM AIR TOLERATING WELL. ON TELE MONITOR SR. IV ACCESS ON LH #22 TKO TOLERATING WELL NO SIGN OF PAIN OR INFECTION. SIDE RAILS UP. HEAD OF BED ELEVATED. CALL LIGHT WITHIN REACH. WILL CONTINUE TO MONITOR PT CLOSELY.
[2017-04-06 08:00] VITALS: BP_SYST 136; BP_DIAS 29; BP_DIAS 49
[2017-04-06] MEDS: INSULIN REGULAR, HUMAN 100 UNIT/ML 3 ML VIAL SQ PRN ×2 (08:20→21:38)
[2017-04-06] MEDS: CALCIUM CARB 250MG /VITAMIN D 1 UDTAB PO SCH ×2 (08:21→17:38)
[2017-04-06] MEDS: glyBURIDE 5 MG TABLET PO SCH (08:21)
[2017-04-06] MEDS: METFORMIN 500 MG TABLET PO SCH (08:21)
[2017-04-06] MEDS: ASPIRIN EC 81 MG TABLET.DR PO SCH (08:21)
[2017-04-06] MEDS: LIPASE/PROTEASE/AMYLASE 1 EACH CAPSULE.DR PO SCH ×3 (08:21→17:38)
[2017-04-06] MEDS: DOCUSATE SODIUM 100 MG CAPSULE PO SCH ×2 (08:21→17:38)
[2017-04-06] MEDS: ATORVASTATIN 10 MG TABLET PO SCH (08:21)
[2017-04-06] MEDS: BLOOD SUGAR DIAGNOSTIC 1 EACH STRIP IN SCH ×4 (08:22→21:36)
[2017-04-06] MEDS ORDERED: Linaclotide (Linzess) 145 MCG PO SCH (09:00)
[2017-04-06 12:00] VITALS: BP_SYST 127; BP_DIAS 41; BP_DIAS 61
[2017-04-06] MEDS: PANTOPRAZOLE 40 MG VIAL IV SCH (14:03)
[2017-04-06] MEDS: SOD FERRIC GLUC 125 MG in IV NS 0.9% 100 ML IV SCH (14:03)
[2017-04-06 16:00] VITALS: BP 124/58
--- NOTE | 2017-04-06 18:44 | NUR ---
OPEN CUT EXAMINER NOTES NO ACUTE CHANGES NOTED DURING THE SHIFT. PROVIDED COMFORT. DUE MEDS GIVEN. HEAD OF BED ELEVATED. SIDE RAILS UP. WILL ENDORSED TO THE PM NURSE.
--- NOTE | 2017-04-06 19:15 | NUR ---
COLLECTION SYSTEMS MODELER NOTES RECEIVED REPORT AND PATIENT FROM DAY SHIFT
[2017-04-06 19:29] LABS: INR 0.96 (0.87-1.13)
[2017-04-06 20:00] VITALS: BP 133/65
[2017-04-07] VITALS: BP 139/64
[2017-04-07] MEDS: LEVOFLOXACIN 500 MG /D5W 100ML 500 MG in PREMIX 1 EA IV SCH (00:19)
[2017-04-07 04:00] VITALS: BP 140/70
[2017-04-07 07:28] LABS: BASOPHILS % (AUTO) 0.3 % (0.0-2.0); EOSINOPHILS # (AUTO) 0.1 /CMM (0.0-0.7); EOSINOPHILS % (AUTO) 1.4 % (0.0-6.0); HEMATOCRIT 26 % (33-45); HEMOGLOBIN 8.4 g/dL (11.5-14.8); LYMPHOCYTES # (AUTO) 2.7 /CMM (0.8-4.8); MEAN CORPUSCULAR HEMOGLOBIN 24 PG (26.0-33.0); MEAN CORPUSCULAR HGB CONC 32 g/dl (31.0-36.0); MEAN CORPUSCULAR VOLUME 74 fL (82-100); MONOCYTES # (AUTO) 0.8 /CMM (0.1-1.30); MONOCYTES % (AUTO) 8.1 % (2.0-12.0); NEUTROPHILS # (AUTO) 6.4 /CMM (1.8-8.9); NEUTROPHILS % (AUTO) 63.2 % (43.0-81.0); PLATELET COUNT (AUTO) 241 /CMM (150-450); RDW COEFFICIENT OF VARIATION 19.7 (11.5-15.0); RED BLOOD CELL COUNT(AUTO) 3.53 MIL/uL (4.0-5.2)
[2017-04-07] MEDS: BLOOD SUGAR DIAGNOSTIC 1 EACH STRIP IN SCH ×4 (07:30→22:30)
[2017-04-07 07:47] LABS: CALCIUM, SERUM 9.8 mg/dL (8.5-10.1); GLUCOSE 135 mg/dL (74-106); UREA NITROGEN, BLOOD 40 mg/dL (7-18)
[2017-04-07 08:00] VITALS: BP 139/76
[2017-04-07] MEDS: LIPASE/PROTEASE/AMYLASE 1 EACH CAPSULE.DR PO SCH ×3 (08:00→18:00)
[2017-04-07 08:14] LABS: CARBON DIOXIDE 26 mmol/L (21-32); CHLORIDE 107 mmol/L (98-107); POTASSIUM 4.3 mmol/L (3.5-5.1); SODIUM SERUM 141 mmol/L (136-145)
[2017-04-07] MEDS: METFORMIN 500 MG TABLET PO SCH (09:00)
[2017-04-07] MEDS: ATORVASTATIN 10 MG TABLET PO SCH (09:00)
[2017-04-07] MEDS: CALCIUM CARB 250MG /VITAMIN D 1 UDTAB PO SCH ×2 (09:00→18:00)
[2017-04-07] MEDS: DOCUSATE SODIUM 100 MG CAPSULE PO SCH ×2 (09:00→18:00)
[2017-04-07] MEDS: ASPIRIN EC 81 MG TABLET.DR PO SCH (09:00)
[2017-04-07] MEDS: glyBURIDE 5 MG TABLET PO SCH (09:00)
[2017-04-07 12:00] VITALS: BP 150/65
[2017-04-07] MEDS: PANTOPRAZOLE 40 MG VIAL IV SCH (14:24)
[2017-04-07] MEDS: SOD FERRIC GLUC 125 MG in IV NS 0.9% 100 ML IV SCH (14:44)
[2017-04-07 16:00] VITALS: BP 147/70
--- NOTE | 2017-04-07 17:00 | NUR ---
RN NOTE PER DR SUTTON TO CANCEL CARDIAC CATH AT [facility] FOR TOMORROW, FLEXIBLE BABYSITTER AND FAMILY NOTIFIED.
[2017-04-07] MEDS: INSULIN REGULAR, HUMAN 100 UNIT/ML 3 ML VIAL SQ PRN ×2 (18:38→22:27)
[2017-04-07 20:00] VITALS: BP 139/92
--- NOTE | 2017-04-07 20:50 | NUR ---
PROGRESSIVE CARE MANAGER NOTES, PATIENT SUPPOSE TO BE DISCHARGE AT THIS TIME, AMBULANCE STAFF HERE AND UPON CHECKING VS, NOTED WITH BLOOD PRESSURE 77/48, RETAKE AGAIN AND BP 95/48, AFTER RECHECK THE BP CONTINUE 75/50. THEY DECIDED NOT TO TAKE THE PATIENT TO NURSING FACILITY. PAGED AND AWAITING FOR NEW ORDERS, WILL CONTINUE TO MONITOR CLOSELY. Addendum: 04/08/17 at 0227 by ERASMO STEEN RN WRONG PATIENT
[2017-04-07] MEDS: AMOXICILLIN TRIHYDRATE 250 MG CAPSULE PO SCH (22:26)
[2017-04-07] MEDS ORDERED: IV NS 0.9% 500 ML IV ONE (23:00)
[2017-04-08] VITALS: BP 139/92
[2017-04-08 04:00] VITALS: BP 135/76
[2017-04-08] MEDS: AMOXICILLIN TRIHYDRATE 250 MG CAPSULE PO SCH ×2 (05:41→12:05)
--- NOTE | 2017-04-08 07:20 | NUR ---
MAGNETIC TAPE COMPOSER OPERATOR OPENING NOTES. PT RECEIVED A&0X2 AWAKE AND RESTING IN BED. TELE: SR. PT TOLERATING ROOM AIR WITH NO SOB AND SA02 WNL. PT REPORTING NO PAIN AND IS WITHOUT S/S OF DISTRESS OR DISCOMFORT. PT SIN CATH INTACT AND OPERATIONAL DRAINING LITE YELLOW URINE. PT WITH IVC AT L HAND G#22 INTACT AND SALINE FLUSHED PATENT. PT BED IN LOWEST LOCKED POSITION WITH HANDRAILSX2 AND CALL PABLO WITHIN REACH. PT BRIEFED ON TODAY'S POC, WILL ORIENTATE NECESSARY. PT WITHOUT CONCERN OR COMPLAINT AT THIS TIME.
[2017-04-08 08:00] VITALS: BP 140/70
[2017-04-08] MEDS: BLOOD SUGAR DIAGNOSTIC 1 EACH STRIP IN SCH ×2 (08:01→12:00)
[2017-04-08] MEDS: LIPASE/PROTEASE/AMYLASE 1 EACH CAPSULE.DR PO SCH ×2 (08:11→12:05)
[2017-04-08] MEDS: glyBURIDE 5 MG TABLET PO SCH (08:13)
[2017-04-08] MEDS: CALCIUM CARB 250MG /VITAMIN D 1 UDTAB PO SCH (08:13)
[2017-04-08] MEDS: ATORVASTATIN 10 MG TABLET PO SCH (08:14)
[2017-04-08] MEDS: ACIDOPHILUS/BULGARICUS 1 EACH TAB.CHEW PO SCH ×2 (08:14→12:07)
[2017-04-08] MEDS: DOCUSATE SODIUM 100 MG CAPSULE PO SCH (08:14)
[2017-04-08] MEDS: METFORMIN 500 MG TABLET PO SCH (08:14)
[2017-04-08] MEDS: ASPIRIN EC 81 MG TABLET.DR PO SCH (08:14)
[2017-04-08] MEDS: INSULIN REGULAR, HUMAN 100 UNIT/ML 3 ML VIAL SQ PRN ×2 (08:21→12:04)
[2017-04-08] MEDS ORDERED: FUROSEMIDE 20 MG TABLET PO SCH (09:00)
--- NOTE | 2017-04-08 11:30 | NUR ---
MS RN. D/C TELE PER .
[2017-04-08] MEDS ORDERED: FURO20TA4 PO (12:43)
[2017-04-08] MEDS ORDERED: AMOX250C PO (12:43)
--- NOTE | 2017-04-08 13:45 | NUR ---
MS RN CLOSING NOTES. PT PREPARED FOR D/C PER MD. PT A&0X2 GIBRALTARIAN SPEAKING. PT TOLERATING ROOM AIR WITH NO SOB. PT REPORTING NO PAIN. PT WITHOUT IVC AND NAD AT SITE. PT WITHOUT SIN AND VOIDING NOTED. PT WITH ALL BELONGINGS AND DOCUMENT SIGNED RNX2. PT BRIEFED ON SO D/C PACKET BUT SIGNED BY RNX2 AND GIVEN TO EMT FOR TRANSPORT. PT CONTACT CALLED TO CONFIRM MEDICATIONS TO CONTINUE AND TO CONFIRM PHARMACY. PT CONTACT VERBALIZING RESOURCES AND INTENT TO FOLLOW POC. ALL DAY NURSE DUTIES ATTENDED TO. PT CONTACT CONFIRM THEY WILL BE AT ADDRESS TO RECEIVE PT. PT WITHOUT CONCERN OR COMPLAINT AT THIS TIME. PT LEFT WITH EMT CREW.
== END 2017-04-08 14:12 | disposition home or self-care (01) | DRG 871 ==
LOC: ER 00:50 → ICU 03:13 → TELE-TD 22:36 → TELE1 04-04 10:03 → MEDSG1 04-08 11:09
PROVIDERS: ADMIT Nurse Practitioner Acute Care; ATTEND Nurse Practitioner Acute Care
PROC: 5A09357 Assistance with Respiratory Ventilation, Less than 24 Consecutive Hours, Continuous Positive Airway Pressure (ICD-10-PCS; principal; 2017-04-03)
PROC: 30233N1 Transfusion of Nonautologous Red Blood Cells into Peripheral Vein, Percutaneous Approach (ICD-10-PCS; 2017-04-03)
DX: A41.9 Sepsis, unspecified organism (principal); I50.33 Acute on chronic diastolic (congestive) heart failure; J96.01 Acute respiratory failure with hypoxia; I21.A1 Myocardial infarction type 2; J18.9 Pneumonia, unspecified organism; E44.1 Mild protein-calorie malnutrition; D62 Acute posthemorrhagic anemia; I11.0 Hypertensive heart disease with heart failure; E88.09 Other disorders of plasma-protein metabolism, not elsewhere classified; K92.2 Gastrointestinal hemorrhage, unspecified; N39.0 Urinary tract infection, site not specified; E66.01 Morbid (severe) obesity due to excess calories; D50.9 Iron deficiency anemia, unspecified; E11.9 Type 2 diabetes mellitus without complications; E78.5 Hyperlipidemia, unspecified; I25.10 Atherosclerotic heart disease of native coronary artery without angina pectoris; I25.2 Old myocardial infarction; J45.909 Unspecified asthma, uncomplicated; K21.9 Gastro-esophageal reflux disease without esophagitis; K44.9 Diaphragmatic hernia without obstruction or gangrene; Z95.1 Presence of aortocoronary bypass graft; Z68.27 Body mass index [BMI] 27.0-27.9, adult; I35.0 Nonrheumatic aortic (valve) stenosis; G14 Postpolio syndrome; B95.2 Enterococcus as the cause of diseases classified elsewhere; M81.0 Age-related osteoporosis without current pathological fracture
CPT/HCPCS: 36415; 36600; 71010-TC; 80048-TC; 80053-TC; 80076-TC; 81000-TC; 82272-TC; 82803-TC; 82962-TC; 83540-TC; 83735-TC; 83880; 84100-TC; 84484-TC; 85025-TC; 85027-TC; 85378-TC; 85610-TC; 85730-TC; 86850-TC; 86921-TC; 87040-TC; 87086-TC; 87186-TC; 87400; 93307-TC; 99082-TC; A4216; A4606; C9113; J1815; J1940; J1956; J2916; J2930; J3105; J3475; J7030; J7050; P9016-BL; Z7610